=== PATIENT | male | born 1985 | race Caucasian/White ===

== ENCOUNTER 2018-06-04 18:56 | Emergency (ER) | payer OTHER ==
[~2018-06-04] VITALS: Ht 180.3 cm; Wt 127.0 kg
[2018-06-04] MEDS ORDERED: SODIUM CHLORIDE 0.9% 1,000 ML IV ONE (21:23)
[2018-06-04] MEDS ORDERED: ONDANSETRON HCL 4MG/2ML INJ IV STA (21:23)
[2018-06-04] MEDS ORDERED: MORPHINE SULFATE 4 MG/ML CPJ (NOT FOR IM USE) IV STA (21:23)
[2018-06-04 21:51] LABS: BASOPHILS % 0.8 % (0.0-2.0); EOSINOPHILS % 0.3 % (0.0-5.0); HEMATOCRIT. 46.3 % (42.0-52.0); HEMOGLOBIN. 15.9 g/dL (14.0-18.0); LYMPHOCYTES % 26.9 % (20.0-50.0); MEAN CORPUSCULAR HEMOGLOBIN 32.4 pg (28.0-32.0); MEAN CORPUSCULAR VOLUME 94.1 fL (80.0-94.0); MEAN PLATELET VOLUME 8.8 fl (7.4-10.4); PLATELET 257 x1000/uL (130-400); RED BLOOD CELL COUNT 4.93 mill/uL (4.7-6.1); RED CELL DISTRIBUTION WIDTH 13.1 % (11.6-14.6)
[2018-06-04 21:57] LABS: CHLORIDE 110 mEq/L (98-107)
[2018-06-04 22:01] LABS: PARTIAL THROMBOPLASTIN TIME 24.9 sec (23.4-31.0); PROTHROMBIN TIME 10.4 sec (9.6-11.0)
[2018-06-05] MEDS ORDERED: MORPHINE SULFATE 4 MG/ML CPJ (NOT FOR IM USE) IV ONE
[2018-06-05 00:23] LABS: CLARITY URINE CLEAR (CLEAR); COLOR URINE YELLOW (YELLOW); KETONES URINE NEGATIVE (NEGATIVE); LEUKOCYTE ESTERASE URINE NEGATIVE (NEGATIVE); NITRITE URINE NEGATIVE (NEGATIVE); OCCULT BLOOD URINE 1+ (NEGATIVE); PH URINE 7.5 (4.5-8.0); PROTEIN URINE NEGATIVE (NEGATIVE); SPECIFIC GRAVITY URINE 1.009 (1.005-1.030); UROBILINOGEN URINE 0.2 E.U./dL (0.2-1.0)
[2018-06-05 02:15] VITALS: BP 119/77
== END 2018-06-05 03:08 | disposition home or self-care (01) ==
LOC: ER 18:56
DX: S80.211A Abrasion, right knee, initial encounter (principal); N43.3 Hydrocele, unspecified; M54.9 Dorsalgia, unspecified; M25.511 Pain in right shoulder; M25.551 Pain in right hip; M79.671 Pain in right foot; N50.811 Right testicular pain; F12.10 Cannabis abuse, uncomplicated; Z90.89 Acquired absence of other organs; V49.88XA Car occupant (driver) (passenger) injured in other specified transport accidents, initial encounter; Y93.89 Activity, other specified; Y92.89 Other specified places as the place of occurrence of the external cause; Y99.8 Other external cause status
CPT/HCPCS: 36415; 72100; 73502; 73560; 73610; 73630; 76870; 80053; 81003; 85025; 85610; 85730; 86850; 86900; 86901; 93976; 96374; 96375; 96376; 99284; J2270; J2405; J7030; Z7610